=== PATIENT | female | born 1960 | race African-American/Black ===

== ENCOUNTER 2020-11-24 19:06 | Emergency (ER) | payer BC, OTHER ==
[~2020-11-24] VITALS: Ht 162.6 cm; Wt 68.0 kg
[2020-11-24] MEDS ORDERED: TETANUS, DIPHTHERIA, PERTUSSIS VAC/PF 0.5ML (>7YR OLD) IM ONE (19:30)
[2020-11-24] MEDS ORDERED: LIDOCAINE HCL/PF 1% 10 MG/ML 5ML VIAL IJ ONE (19:30)
[2020-11-24] MEDS ORDERED: BACITRACIN ZINC OINT UDPKT TOP ONE (19:30)
[2020-11-24] MEDS ORDERED: IBUPROFEN 600MG TABLET PO STA (19:30)
[2020-11-24] MEDS ORDERED: IBUP-2029 PO (20:14)
[2020-11-24 20:47] VITALS: BP 117/71
== END 2020-11-24 20:47 | disposition home or self-care (01) ==
LOC: ER 19:06
DX: S01.01XA Laceration without foreign body of scalp, initial encounter (principal); I10 Essential (primary) hypertension; W20.1XXA Struck by object due to collapse of building, initial encounter; Y93.9 Activity, unspecified; Y92.9 Unspecified place or not applicable; Y99.9 Unspecified external cause status
CPT/HCPCS: 12002; 90471; 90715; 99283; A4217; J3490; Z7610